=== PATIENT | female | born 2005 | race Caucasian/White ===

== ENCOUNTER 2025-01-16 12:26 | Day surgery (SDC) | payer OTHER ==
[~2025-01-16] VITALS: Ht 162.6 cm; Wt 80.5 kg
[~2025-01-16 12:26] MED LIST: ACETAMINOPHEN 1000MG/100ML IV BAG As Ordered ONE; DOXYCYCLINE HYCLATE 100 MG in DEXTROSE 5% (D5W) MINI-BAG PLU 100 ML IV SCH; KETOROLAC 30 MG/ML 1 ML VIAL As Ordered ONE; LIDOCAINE 2% 100 MG/5 ML SDV (FOR ANES.) As Ordered ONE; MIDAZOLAM INJ 2 MG/2 ML VIAL As Ordered ONE; ONDANSETRON 4MG/2ML VIAL As Ordered ONE; dexAMETHasone 4 MG/ML 1 ML VIAL As Ordered ONE
[2025-01-16] MEDS: DOXYCYCLINE HYCLATE 100 MG in DEXTROSE 5% (D5W) MINI-BAG PLU 100 ML IV SCH (13:16)
[2025-01-16] MEDS: LIDOCAINE 1% SDV 30 ML VIAL As Ordered ONE (13:45)
[2025-01-16] MEDS: SILVER NITRATE APPLICATOR (1 = QTY 10) As Ordered ONE (13:45)
[2025-01-16] MEDS ORDERED: IBUP80TA PO (14:00)
[2025-01-16] MEDS ORDERED: ACET-861 PO (14:00)
[2025-01-16] MEDS ORDERED: LR 1,000 ML IV SCH (14:05)
[2025-01-16] MEDS ORDERED: ONDANSETRON 4MG/2ML VIAL IV PRN (14:05)
[2025-01-16] MEDS ORDERED: HYDROMORPHONE HCL 0.5 MG/0.5 ML SYRINGE IV PRN (14:05)
[2025-01-16 15:02] VITALS: BP 110/62; TEMP 97.9; O2SAT 100
== END 2025-01-16 15:13 | disposition home or self-care (01) ==
LOC: M SDC 12:26
PROVIDERS: ATTEND Obstetrics & Gynecology
DX: O02.1 Missed abortion (principal)
CPT/HCPCS: 59820; 88305; J0131; J1100; J1271; J1885; J2250; J2405; J3010

== ENCOUNTER 2025-01-20 19:17 | Emergency (ER) | payer OTHER ==
[~2025-01-20] VITALS: Ht 162.6 cm; Wt 80.4 kg
[~2025-01-20 19:17] MED LIST changes: +ACET-861 PO; -ACETAMINOPHEN 1000MG/100ML IV BAG As Ordered ONE; -DOXYCYCLINE HYCLATE 100 MG in DEXTROSE 5% (D5W) MINI-BAG PLU 100 ML IV SCH; +IBUP80TA PO; -KETOROLAC 30 MG/ML 1 ML VIAL As Ordered ONE; -LIDOCAINE 2% 100 MG/5 ML SDV (FOR ANES.) As Ordered ONE; -MIDAZOLAM INJ 2 MG/2 ML VIAL As Ordered ONE; -ONDANSETRON 4MG/2ML VIAL As Ordered ONE; -dexAMETHasone 4 MG/ML 1 ML VIAL As Ordered ONE
[2025-01-20 20:51] LABS: BASO # 0.0 10^3/uL (0.0-0.2); BASO % 0.1 % (0.0-1.0); EOS # 0.2 10^3/uL (0.0-0.5); EOS % 2.3 % (0.0-3.0); LYMPH # 1.2 10^3/uL (1.5-5.0); LYMPH % 12.2 % (24.0-44.0); MONO # 0.5 10^3/uL (0.0-0.8); MONO % 5.1 % (2.0-8.0); NEUTROPHILS # 7.6 10^3/uL (1.5-8.5); NEUTROPHILS % 79.9 % (36.0-66.0); PLATELET COUNT, AUTOMATED 218 10^3/uL (150-450)
[2025-01-20 21:16] LABS: ALT/SGPT 35 U/L (7.0-40); AST/SGOT 40 U/L (<34); CALCIUM LEVEL 8.0 MG/DL (8.5-10.1); CARBON DIOXIDE LEVEL 24 MMOL/L (20-31); CHLORIDE LEVEL 108 MMOL/L (98-107); CREATININE FOR GFR 0.58 MG/DL (0.55-1.30); GLOMERULAR FILTRATION RATE > 90.0 (>60); POTASSIUM SERUM 4.4 MMOL/L (3.5-5.1); SODIUM LEVEL 142 MMOL/L (136-145)
[2025-01-20] MEDS: KETOROLAC 30 MG/ML 1 ML VIAL IV ONE (22:31)
[2025-01-20 22:40] LABS: KETONE, URINE AUTO RFX NEGATIVE (NEGATIVE); LEUKOCYTE ESTERASE UR AUTO RFX 1+ (NEGATIVE); MUCUS, URINE RFX SMALL (NEGATIVE); NITRITE, URINE AUTO RFX NEGATIVE (NEGATIVE); RBC, URINE AUTO RFX 112 /HPF (0-3); SQUAM EPITHELIAL CELL UR AURFX 6 /HPF (0-6); WBC, URINE AUTO RFX 14 /HPF (0-3)
[2025-01-20 23:10] LABS: INR 0.97
[2025-01-20 23:30] VITALS: BP 119/69; TEMP 98.2; O2SAT 98
[2025-01-20] MEDS ORDERED: MIRA3350 PO (23:35)
[2025-01-20] MEDS ORDERED: OXYC-517 PO (23:35)
[2025-01-21] MEDS ORDERED: MIRA3350 PO (17:37)
== END 2025-01-20 23:54 | disposition home or self-care (01) ==
LOC: M ED 19:17
DX: G89.18 Other acute postprocedural pain (principal); N93.9 Abnormal uterine and vaginal bleeding, unspecified; Z79.1 Long term (current) use of non-steroidal anti-inflammatories (NSAID); Z79.899 Other long term (current) drug therapy
CPT/HCPCS: 76856; 80048; 80076; 81001; 85025; 85610; 85730; 86850; 86900; 86901; 87086; 93976; 96374; 99284; J1885

== ENCOUNTER 2025-01-21 17:32 | Emergency (ER) | payer OTHER ==
[~2025-01-21] VITALS: Ht 162.6 cm; Wt 79.6 kg
[~2025-01-21 17:32] MED LIST changes: +MIRA3350 PO; +OXYC-517 PO
[2025-01-21] MEDS ORDERED: MIRA3350 PO (17:37)
[2025-01-21 22:08] LABS: BASO # 0.0 10^3/uL (0.0-0.2); BASO % 0.2 % (0.0-1.0); EOS # 0.0 10^3/uL (0.0-0.5); EOS % 0.3 % (0.0-3.0); LYMPH # 1.2 10^3/uL (1.5-5.0); LYMPH % 10.8 % (24.0-44.0); MONO # 0.6 10^3/uL (0.0-0.8); MONO % 4.9 % (2.0-8.0); NEUTROPHILS # 9.5 10^3/uL (1.5-8.5); NEUTROPHILS % 83.5 % (36.0-66.0); PLATELET COUNT, AUTOMATED 230 10^3/uL (150-450)
[2025-01-21] MEDS: NS (Normal Saline) 0.9% 1,000 ML IV ONE (22:10)
[2025-01-21] MEDS: cefTRIAXone SOD 1 GM in DEXTROSE 5% (D5W) ADV/MINI-BAG 50 ML IV ONE (22:10)
[2025-01-21] MEDS ORDERED: ISOVUE-370 76% 100 ML VIAL As Ordered ONE (22:18)
[2025-01-21 22:32] LABS: CALCIUM LEVEL 8.9 MG/DL (8.5-10.1); CARBON DIOXIDE LEVEL 26 MMOL/L (20-31); CHLORIDE LEVEL 107 MMOL/L (98-107); CREATININE FOR GFR 0.56 MG/DL (0.55-1.30); GLOMERULAR FILTRATION RATE > 90.0 (>60); POTASSIUM SERUM 4.0 MMOL/L (3.5-5.1); SODIUM LEVEL 142 MMOL/L (136-145)
[2025-01-22 01:12] VITALS: BP 116/59; TEMP 98; O2SAT 100
== END 2025-01-22 01:22 | disposition home or self-care (01) ==
LOC: M ED 17:32
DX: G89.18 Other acute postprocedural pain (principal); Z79.1 Long term (current) use of non-steroidal anti-inflammatories (NSAID); Z79.899 Other long term (current) drug therapy
CPT/HCPCS: 36415; 74177; 80048; 85025; 96365; 99284; J0696; Q9967